=== PATIENT | female | born 1960 | race Caucasian/White ===

== ENCOUNTER 2025-05-24 08:31 | Emergency (ER) | payer BC ==
[~2025-05-24] VITALS: Ht 170.2 cm; Wt 86.4 kg
[2025-05-24] MEDS ORDERED: FAMO20TA PO (08:46)
[2025-05-24] MEDS ORDERED: PANT40TA29 PO (08:46)
[2025-05-24] MEDS ORDERED: ATOR40TA75 PO (08:46)
[2025-05-24] MEDS ORDERED: AUGM500T34 PO (08:46)
[2025-05-24] MEDS ORDERED: LOSA50TA28 PO (08:46)
[2025-05-24] MEDS ORDERED: ISOVUE-370 76% 100 ML VIAL As Ordered ONE (09:03)
[2025-05-24] MEDS: MECLIZINE 25 MG TABLET PO ONE (09:17)
[2025-05-24 09:20] LABS: BASO # 0.1 10^3/uL (0.0-0.2); BASO % 1.9 % (0.0-1.0); EOS # 0.2 10^3/uL (0.0-0.5); EOS % 3.8 % (0.0-3.0); LYMPH # 1.4 10^3/uL (1.5-5.0); LYMPH % 26.0 % (24.0-44.0); MONO # 0.5 10^3/uL (0.0-0.8); MONO % 9.2 % (2.0-8.0); NEUTROPHILS # 3.1 10^3/uL (1.5-8.5); NEUTROPHILS % 58.9 % (36.0-66.0); PLATELET COUNT, AUTOMATED 386 10^3/uL (150-450)
[2025-05-24 09:51] LABS: CPK CREATINE PHOSPHOKINASE 114.0 U/L (34-145)
[2025-05-24 09:52] LABS: ALT/SGPT 51.0 U/L (7.0-40); AST/SGOT 29.0 U/L (<34); CALCIUM LEVEL 10.2 MG/DL (8.3-10.6); CARBON DIOXIDE LEVEL 26.0 MMOL/L (20-31); CHLORIDE LEVEL 106.0 MMOL/L (98-107); CK-MB VALUE MASS 1.4 NG/ML (<3.6); CREATININE FOR GFR 0.89 MG/DL (0.55-1.30); GLOMERULAR FILTRATION RATE 72.4 (>45); MB/CK RELATIVE INDEX 1.22 (< OR =4); POTASSIUM SERUM 4.2 MMOL/L (3.5-5.1); SODIUM LEVEL 142.0 MMOL/L (136-145)
[2025-05-24 09:53] LABS: INR 0.88
[2025-05-24 09:54] LABS: FREE T4 1.38 NG/DL (0.89-1.76)
[2025-05-24 10:45] LABS: CK-MB VALUE MASS 1.2 NG/ML (<3.6); KETONE, URINE AUTO RFX NEGATIVE (NEGATIVE); LEUKOCYTE ESTERASE UR AUTO RFX NEGATIVE (NEGATIVE); MUCUS, URINE RFX SMALL (NEGATIVE); NITRITE, URINE AUTO RFX NEGATIVE (NEGATIVE); RBC, URINE AUTO RFX 3 /HPF (0-3); SQUAM EPITHELIAL CELL UR AURFX 1 /HPF (0-6); WBC, URINE AUTO RFX 0 /HPF (0-3)
[2025-05-24 10:47] LABS: CPK CREATINE PHOSPHOKINASE 103 U/L (34-145); MB/CK RELATIVE INDEX 1.16 (< OR =4)
[2025-05-24] MEDS ORDERED: AMOX875T2 PO (12:22)
[2025-05-24] MEDS ORDERED: ASPI81TA26 PO (12:25)
[2025-05-24] MEDS ORDERED: CALC600T57 PO (12:25)
[2025-05-24] MEDS ORDERED: CVS1CAP2 PO (12:25)
[2025-05-24] MEDS ORDERED: FEXO-63 PO (12:25)
[2025-05-24] MEDS ORDERED: VITA100093 PO (12:25)
[2025-05-24] MEDS ORDERED: HOME MED LIST COMPLETE! XX SCH (12:30)
[2025-05-24] MEDS ORDERED: MECL-209 PO (15:49)
[2025-05-24] MEDS ORDERED: CLOP75TA99 PO (16:09)
[2025-05-24 16:15] VITALS: BP 127/66; TEMP 97.5; O2SAT 95
[2025-05-24] MEDS: CLOPIDOGREL 75 MG TAB PO ONE (16:20)
== END 2025-05-24 16:38 | disposition home or self-care (01) ==
LOC: M ED 08:31
DX: H81.399 Other peripheral vertigo, unspecified ear (principal); Z86.73 Personal history of transient ischemic attack (TIA), and cerebral infarction without residual deficits; I10 Essential (primary) hypertension; E78.00 Pure hypercholesterolemia, unspecified; K57.92 Diverticulitis of intestine, part unspecified, without perforation or abscess without bleeding; F17.200 Nicotine dependence, unspecified, uncomplicated; Z79.82 Long term (current) use of aspirin; Z79.02 Long term (current) use of antithrombotics/antiplatelets; Z79.899 Other long term (current) drug therapy; Z91.018 Allergy to other foods; Z91.030 Bee allergy status
CPT/HCPCS: 70450; 70496; 70498; 70551; 71045; 80047; 80048; 80076; 81001; 82550; 82553; 84439; 84443; 84484; 85025; 85610; 85730; 86850; 86900; 86901; 87486; 87581; 87633; 87798; 93005; 93041; 94760; 99285; Q9967

== ENCOUNTER → 2025-06-13 | Outpatient (REF) | payer BC ==
[~2025-06-13] MED LIST: AMOX875T2 PO; ASPI81TA26 PO; ATOR40TA75 PO; AUGM500T34 PO; CALC600T57 PO; CLOP75TA99 PO; CVS1CAP2 PO; FAMO20TA PO; FEXO-63 PO; LOSA50TA28 PO; MECL-209 PO; PANT40TA29 PO; VITA100093 PO
[2025-06-13 19:11] LABS: ESTIMATED AVERAGE GLUCOSE 100.0 MG/DL (60-110)
[2025-06-13 20:28] LABS: HEPATITIS C VIRUS ABY INDEX < 0.02 INDEX (<0.8); HIV 1&2 SCREEN NEGATIVE (NEGATIVE)
[2025-06-13 20:48] LABS: TOTAL 25(OH) VITAMIN D 107.6 NG/ML (20.0-100.0)
== END ==
LOC: M LAB REF 17:29
PROVIDERS: ATTEND Physician Assistant
DX: I10 Essential (primary) hypertension (principal); Z11.9 Encounter for screening for infectious and parasitic diseases, unspecified; E55.9 Vitamin D deficiency, unspecified

== ENCOUNTER → 2025-06-20 | Outpatient (CLI) | payer BC ==
[2025-06-20 17:07] LABS: VITAMIN B12 LEVEL 448 PG/ML (211-911)
== END ==
LOC: M LAB 14:13
PROVIDERS: ATTEND Psychiatry & Neurology Neurology
DX: G45.9 Transient cerebral ischemic attack, unspecified (principal); R42 Dizziness and giddiness; E53.8 Deficiency of other specified B group vitamins